=== PATIENT | male | born 1985 | race Caucasian/White ===

== ENCOUNTER 2017-08-24 08:42 | Emergency (ER) | payer BC ==
[2017-08-24 08:42] VITALS: BMI 36.9
[2017-08-24 09:06] VITALS: BP 134/76; PULSE 90; RESP 18; TEMP 98.6; O2SAT 97
--- NOTE | 2017-08-24 09:12 | ED PDOC ---
Arrival/HPI - General Chief Complaint: Abnormal Skin Integrity Time Seen by Provider: 08/24/17 09:06 Historian: Patient - History of Present Illness Narrative History of Present Illness (Text): 08/24/17 09:16 32-year-old male presents today with a 2 day history of abscess/redness to the left cheek along the giles line. Patient states 2 days ago he noticed pain and redness. Patient states he has been squeezing the area and has been able to have some pus released. Patient denies fevers or chills. Denies trismus or drooling. No medications have been taken at home. No other complaints Symptom Onset: Gradual Quality: Aching Severity Level: 2 Past Medical History - Provider Review Nursing Documentation Reviewed: Yes - Travel History Have you recently traveled outside [place] w/in the past 3 mons?: No - Infectious Disease Hx of Infectious Diseases: None - Tetanus Immunization Tetanus Immunization: Unknown - Cardiac Hx Cardiac Disorders: No - Pulmonary Hx Respiratory Disorders: Yes Hx Asthma: Yes - Neurological Hx Neurological Disorder: No - HEENT Hx HEENT Disorder: No - Renal Hx Renal Disorder: No - Endocrine/Metabolic Hx Endocrine Disorders: No - Hematological/Oncological Hx Blood Disorders: No - Integumentary Hx Dermatological Disorder: No - Musculoskeletal/Rheumatological Hx Musculoskeletal Disorders: No - Gastrointestinal Hx Gastrointestinal Disorders: No - Genitourinary/Gynecological Hx Genitourinary Disorders: No - Psychiatric Hx Psychophysiologic Disorder: No Hx Substance Use: No - Surgical History Other/Comment: fracture of the right femur with jose carlos placement - Anesthesia Hx Anesthesia: Yes Hx Anesthesia Reactions: No Hx Malignant Hyperthermia: No Family/Social History - Physician Review Nursing Documentation Reviewed: Yes Family/Social History: Unknown Family HX Smoking Status: Never Smoked Hx Alcohol Use: No Hx Substance Use: No Allergies/Home Meds Allergies/Adverse Reactions: Allergies No Known Allergies Allergy (Verified 08/24/17 09:03) Review of Systems - Review of Systems Constitutional: absent: Fatigue, Fevers Respiratory: absent: SOB, Cough Cardiovascular: absent: Chest Pain, Palpitations Gastrointestinal: absent: Abdominal Pain, Nausea, Vomiting Genitourinary Male: absent: Dysuria Musculoskeletal: absent: Arthralgias, Back Pain, Neck Pain Skin: Abscess Neurological: absent: Headache, Dizziness Psychiatric: absent: Anxiety, Depression Physical Exam Vital Signs Reviewed: Yes Vital Signs Temp Pulse Resp BP Pulse Ox 08/24/17 09:04 98.6 F 90 18 134/76 97 Temperature: Afebrile Blood Pressure: Normal Pulse: Regular Respiratory Rate: Normal Appearance: Positive for: Well-Appearing, Non-Toxic, Comfortable Pain Distress: None Mental Status: Positive for: Alert and Oriented X 3 - Systems Exam Head: Present: Atraumatic, Other (left cheek; there is a dime sized area of erythema with minimal induration; no purulent discharge, no fluctuance. ) Mouth: Present: Moist Mucous Membranes Neck: Present: Normal Range of Motion Respiratory/Chest: Present: Clear to Auscultation Cardiovascular: Present: Regular Rate and Rhythm Neurological: Present: GCS=15 Skin: Present: Warm, Dry Psychiatric: Present: Alert, Oriented x 3 Medical Decision Making ED Course and Treatment: 08/24/17 09:18 Patient is nontoxic well-appearing in no distress. Vital signs are stable. dime sized area of erythema; no fluctuance; will cover with bactrim and keflex; Patient was advised to use warm compresses warm soaks. advised f/u with surgeon within the next 2 days. return immediately if symptoms worsen persist or if new symptoms develop Patient verbalizes understanding of discharge instructions and need for immediate followup. Impression: Abscess, cheek Motrin one tablet every 6 hours as needed for pain Keflex; 1 capsule 4 times daily x 7 days. Bactrim DS: One tablet twice daily x7 days Warm compresses and warm soaks frequently Follow up with the Surgeon within the next 2 days. Return immediately if symptoms worsen persist or if new symptoms develop: High fevers, increasing pain, increasing redness, swelling or if any other concerning symptoms develop. - Medication Orders Current Medication Orders: Discontinued Medications Cephalexin Monohydrate (Keflex) 500 mg PO STAT STA PRN Reason: Protocol Stop: 08/24/17 09:16 Last Admin: 08/24/17 09:23 Dose: 500 mg Trimethoprim/Sulfamethoxazole (Bactrim Ds Tab) 1 tab PO STAT STA PRN Reason: Protocol Stop: 08/24/17 09:16 Last Admin: 08/24/17 09:23 Dose: 1 tab Disposition/Present on Arrival - Present on Arrival Any Indicators Present on Arrival: No History of DVT/PE: No History of Uncontrolled Diabetes: No Urinary Catheter: No History of Decub. Ulcer: No History Surgical Site Infection Following: None - Disposition Have Diagnosis and Disposition been Completed?: Yes Diagnosis: Abscess Disposition: HOME/ ROUTINE Disposition Time: 09:09 Patient Plan: Discharge Condition: GOOD Discharge Instructions (ExitCare): Abscess (ED) Additional Instructions: Motrin one tablet every 6 hours as needed for pain Keflex; 1 capsule 4 times daily x 7 days. Bactrim DS: One tablet twice daily x7 days Warm compresses and warm soaks frequently Follow up with the Surgeon within the next 2 days. Return immediately if symptoms worsen persist or if new symptoms develop: High fevers, increasing pain, increasing redness, swelling or if any other concerning symptoms develop. Prescriptions: Cephalexin [Keflex] 500 mg PO QID #28 capsule Ibuprofen [Motrin] 600 mg PO Q6H PRN #20 tab PRN Reason: pain/fever reduction Sulfamethoxazole/Trimethoprim [Bactrim DS 800 mg-160 mg] 1 tab PO BID #14 tab Referrals: Kobe Mcnair MD [Medical Doctor] - Follow up with primary Nehal Lentz MD [Staff Provider] - Follow up with primary Forms: [employer] (Tajik)
[2017-08-24] MEDS ORDERED: Tmp-Smz 800 mg-160 mg DS Tab PO STA (09:15)
== END 2017-08-24 09:24 | disposition home or self-care (01) ==
LOC: ED 08:42
DX: L02.01 Cutaneous abscess of face (principal)